=== PATIENT | female | born 1985 | race African-American/Black ===

== ENCOUNTER 2017-09-01 14:18 | Outpatient (CLI) | payer MEDICAID ==
[2017-09-02 04:06] LABS: APPEARANCE,URINE SLIGHTLY-CLOUDY; BILIRUBIN,URINE NEGATIVE (NEGATIVE); COLOR,URINE YELLOW; GLUCOSE, URINE 50 mg/dL (NEGATIVE); KETONES,URINE NEGATIVE (NEGATIVE); LEUKOCYTE ESTERASE,URINE SMALL (NEGATIVE); NITRITE,URINE NEGATIVE (NEGATIVE); PROTEIN,URINE NEGATIVE (NEGATIVE); URINE SPECIFIC GRAVITY 1.009; UROBILINOGEN,URINE NEGATIVE mg/dL (<2.0)
[2017-09-02 12:23] LABS: URINE BENZODIAZEPINES SCREEN NEGATIVE; URINE COCAINE SCREEN NEGATIVE; URINE PHENCYCLIDINE SCREEN NEGATIVE
[2017-09-02 12:24] LABS: URINE AMPHETAMINES SCREEN NEGATIVE; URINE BARBITURATES SCREEN NEGATIVE; URINE MARIJUANA (THC) SCREEN NEGATIVE; URINE METHADONE SCREEN NEGATIVE
== END 2017-09-01 16:13 | disposition home or self-care (01) ==
LOC: LC 14:18
PROVIDERS: ATTEND Obstetrics & Gynecology
PROC: 4A1HXCZ Monitoring of Products of Conception, Cardiac Rate, External Approach (ICD-10-PCS; principal; 2017-09-01)
DX: O47.1 False labor at or after 37 completed weeks of gestation (principal); Z3A.39 39 weeks gestation of pregnancy
CPT/HCPCS: 59025; 80307; 81005

== ENCOUNTER 2017-09-10 14:59 | Outpatient (CLI) | payer MEDICAID ==
[2017-09-10 15:39] LABS: APPEARANCE,URINE SLIGHTLY-CLOUDY; BILIRUBIN,URINE NEGATIVE (NEGATIVE); COLOR,URINE YELLOW; GLUCOSE, URINE NEGATIVE (NEGATIVE); KETONES,URINE NEGATIVE (NEGATIVE); LEUKOCYTE ESTERASE,URINE NEGATIVE (NEGATIVE); NITRITE,URINE NEGATIVE (NEGATIVE); PROTEIN,URINE 30 mg/dL (NEGATIVE); URINE SPECIFIC GRAVITY 1.021
[2017-09-10 15:53] LABS: URINE AMPHETAMINES SCREEN NEGATIVE; URINE BARBITURATES SCREEN NEGATIVE; URINE BENZODIAZEPINES SCREEN NEGATIVE; URINE COCAINE SCREEN NEGATIVE; URINE MARIJUANA (THC) SCREEN NEGATIVE; URINE METHADONE SCREEN NEGATIVE; URINE PHENCYCLIDINE SCREEN NEGATIVE
--- NOTE | 2017-09-10 16:03 | Non Stress Test Report ---
Non Stress Test Datetime Report Generated by CPN: 09/10/2017 16:03 DEMOGRAPHIC EGA NST: 40.6 INDICATION Indication for Study: Ordered by Provider Indication for Study (NST) Other: LC MONITORING Monitor Explained: Monitor Explained; Test Explained; Patient Verbalized Understanding Time on Monitor: 09/10/2017 15:16 Time off Monitor: 09/10/2017 15:55 NST Duration: 39 NST INTERVENTIONS NST Interventions: PO Hydration Physician Notified NST: C. Good, CNM BABY A: [id number] BABY A Movement : Present Contraction Frequency : 16 FHR Baseline : 135 Accelerations : 15X15 Decelerations : None Variability : Moderate 6-25bpm NST Review: Meets Criteria for Reactive NST NST Review and Verified By : Dar Bellavamendoza RNC NST Results: Reactive NST REPORT Report Trigger: Send Report
== END 2017-09-10 16:06 | disposition home or self-care (01) ==
LOC: LC 14:59
PROVIDERS: ATTEND Student in an Organized Health Care Education/Training Program
PROC: 4A1HXCZ Monitoring of Products of Conception, Cardiac Rate, External Approach (ICD-10-PCS; principal; 2017-09-10)
DX: O47.1 False labor at or after 37 completed weeks of gestation (principal); O48.0 Post-term pregnancy; Z3A.40 40 weeks gestation of pregnancy
CPT/HCPCS: 59025; 80307; 81001

== ENCOUNTER 2017-09-11 06:17 | Inpatient (IN) | payer MEDICAID ==
[2017-09-11] MEDS ORDERED: PENICILLIN G POTASSIUM 5,000,000 UNIT in DEXTROSE 5%-WATER 100 ML IV ONE (06:34)
[2017-09-11] MEDS ORDERED: RINGERS SOLUTION,LACTATED 1,000 ML IV PRN (06:34)
[2017-09-11] MEDS ORDERED: RINGERS SOLUTION,LACTATED 1,000 ML IV ONE (06:34)
[2017-09-11] MEDS ORDERED: PENICILLIN G-K 5 MILLION UNIT VIAL IV PRN (06:39)
[2017-09-11 07:06] LABS: ABSOLUTE EOSINOPHILS # (AUTO) 0.1 10^3/uL (0.0-0.6); ABSOLUTE LYMPHOCYTES (AUTO) 1.5 10^3/uL (0.5-4.7); ABSOLUTE MONOCYTES (AUTO) 0.6 10^3/uL (0.1-1.4); ABSOLUTE NEUT (AUTO) 4.3 10^3/uL (1.7-8.2); BASOPHILS % (AUTO) 0.5 % (0-2); EOSINOPHILS % (AUTO) 1.1 % (0-6); HEMATOCRIT 32.2 % (36.0-47.0); HEMOGLOBIN 10.9 g/dL (12.0-15.5); LYMPHOCYTES % (AUTO) 22.5 % (13-45); MEAN CORPUSCULAR HGB CONC 33.8 g/dL (32.0-36.0); MEAN CORPUSCULAR VOLUME 98 fl (80-97); MONOCYTES % (AUTO) 9.7 % (3-13); PLATELET COUNT 238 10^3/uL (150-450); RED BLOOD COUNT 3.29 10^6/uL (3.72-5.28); RED CELL DISTRIBUTION WIDTH 13.6 % (11.5-14.0); SEGMENTED NEUTROPHILS % (AUTO) 66.2 % (42-78); TOTAL CELLS COUNTED % (AUTO) 100 %; WHITE BLOOD COUNT 6.5 10^3/uL (4.0-10.5)
[2017-09-11] MEDS ORDERED: OXYTOCIN/NORMAL SALINE 20 UNIT/1,000 ML RTUINJ ONE (07:37)
[2017-09-11 07:47] LABS: APPEARANCE,URINE SLIGHTLY-CLOUDY; BILIRUBIN,URINE NEGATIVE (NEGATIVE); COLOR,URINE YELLOW; GLUCOSE, URINE NEGATIVE (NEGATIVE); KETONES,URINE NEGATIVE (NEGATIVE); LEUKOCYTE ESTERASE,URINE NEGATIVE (NEGATIVE); NITRITE,URINE NEGATIVE (NEGATIVE); PROTEIN,URINE NEGATIVE (NEGATIVE); URINE SPECIFIC GRAVITY 1.023
[2017-09-11] MEDS: OXYTOCIN/NORMAL SALINE 20 UNIT/1,000 ML RTUINJ IV PRN ×2 (07:47→13:54)
[2017-09-11] MEDS ORDERED: PENICILLIN G-K 5 MILLION UNIT VIAL ONE ×2 (07:53→11:31)
[2017-09-11 08:23] LABS: URINE AMPHETAMINES SCREEN NEGATIVE; URINE BARBITURATES SCREEN NEGATIVE; URINE BENZODIAZEPINES SCREEN NEGATIVE; URINE COCAINE SCREEN NEGATIVE; URINE MARIJUANA (THC) SCREEN NEGATIVE; URINE METHADONE SCREEN NEGATIVE; URINE PHENCYCLIDINE SCREEN NEGATIVE
--- NOTE | 2017-09-11 09:35 | L&D Progress Notes ---
PROGRESS NOTES Datetime Report Generated by CPN: 09/11/2017 09:35 PROGRESS NOTE Plan: Induction Informed Consent Obtained: Vaginal Delivery; Induction of Labor; Risks, Benefits and Alternatives Discussed Informed Consent Obtained: Vaginal Delivery; Induction of Labor; Risks, Benefits and Alternatives Discussed Comment: 32 yo EDC per u/s 09/04/17 EGA 41 weeks history of chlamydia with neg KENDRICK largest baby 8lbs 13oz. abdomen soft and nontender FHTs 120s average variability cat 1 uterine contractions 2-4 min GBS positive gbs prophylaxis plan to rupture after second dose pitocin @8 milliunits/ min anticipate poc reviewed with pt and sister VAGINAL EXAM Dilatation: 3 Effacement: 25 Station: -3 Contractions: q 2 -3 MEMBRANES Membranes: Intact Membranes: Intact FETUS A Monitoring: External US Variability: Moderate 6-25bpm Accelerations: 15X15 Decelerations: None FHR Category: Category I : 41.0 Presentation: Vertex SIGNATURE SIGNATURE: [id number] SIGNATURE: [id number] SIGNATURE: [id number] Assignment: Benji Medrano MD Signature: with User ID: [email or web address] : with User ID: [email or web address]
[2017-09-11] MEDS ORDERED: PENICILLIN G POTASSIUM 2,500,000 UNIT in DEXTROSE 5%-WATER 50 ML IV SCH (10:35)
[2017-09-11] MEDS ORDERED: MISOPROSTOL 0.2 MG TABLET ONE (11:31)
[2017-09-11] MEDS ORDERED: LIDOCAINE 1% INJ-PF (10 MG/ML) 30 ML SDV ONE (11:31)
[2017-09-11] MEDS: PENICILLIN G-K 5 MILLION UNIT VIAL IV SCH ×3 (11:40→21:42)
[2017-09-11] MEDS ORDERED: PSEUDOEPHEDRINE HCL 30 MG TABLET PO PRN (12:13)
[2017-09-11] MEDS ORDERED: DIPHENHYDRAMINE HCL 25 MG CAPSULE PO PRN (12:13)
[2017-09-11] MEDS ORDERED: BENZOCAINE/MENTHOL AEROSOL SPRAY 56 ML TOP PRN (12:13)
[2017-09-11] MEDS ORDERED: DIPH/PERTUSS(ACELL)/TETANUS VAC/PF 0.5 ML SYR (>=10YO) IM PRN (12:13)
[2017-09-11] MEDS ORDERED: PROMETHAZINE HCL 25 MG SUPP.RECT PR PRN (12:13)
[2017-09-11] MEDS ORDERED: PROMETHAZINE HCL 25 MG TABLET PO PRN (12:13)
[2017-09-11] MEDS ORDERED: PROMETHAZINE HCL INJ 25 MG/1 ML VIAL IV PRN (12:13)
[2017-09-11] MEDS ORDERED: ACETAMINOPHEN WITH CODEINE #3 TABLET PO PRN (12:13)
[2017-09-11] MEDS ORDERED: ACETAMINOPHEN 650 MG SUPP.RECT PR PRN (12:13)
[2017-09-11] MEDS ORDERED: NA PHOS,M-B/NA PHOS,DI-BA (ADULT) 133 ML ENEMA PR PRN (12:13)
[2017-09-11] MEDS ORDERED: OXYTOCIN/NORMAL SALINE 20 UNIT/1,000 ML RTUINJ IV PRN (12:13)
[2017-09-11] MEDS ORDERED: GLYCERIN/WITCH HAZEL LEAF 1 EACH MED..PAD TP PRN (12:13)
[2017-09-11] MEDS ORDERED: MEASLES,MUMPS&RUBELLA VACC/PF 0.5 ML VIAL SUBCUT PRN (12:13)
[2017-09-11] MEDS ORDERED: DIBUCAINE 1% OINTMENT 28 GM TP PRN (12:13)
[2017-09-11] MEDS ORDERED: MAGNESIUM HYDROXIDE SUSP 30 ML UDCUP PO PRN (12:13)
[2017-09-11] MEDS ORDERED: ZOLPIDEM TARTRATE 5 MG TABLET PO PRN (12:13)
[2017-09-11] MEDS ORDERED: ACETAMINOPHEN WITH CODEINE #3 TABLET ONE (12:14)
--- NOTE | 2017-09-11 14:18 | Admission Physical ---
Datetime Report Generated by CPN: 09/11/2017 14:18 CURRENT ADMISSION Chief Complaint: Scheduled Induction of Labor Indication for Induction: Post Dates Indication for Induction: Term, Intrauterine ; No Active Labor; Intact Membranes; Induction of Labor Admit Plan: Admit to Unit; Initiate Labor Induction Protocol ALLERGIES Medication Allergies: No Medication Allergies: No Known Allergies (09/11/2017) Medication Allergies: No Known Allergies (09/10/2017) Medication Allergies: No Known Allergies (05/15/2012) Latex: No Latex Allergies Food Allergies: none Environmental Allergies: none OBSTETRICAL HISTORY EDC: 09/04/2017 00:00 : 6 Para: 4 Term: 4 : 0 SAB: 1 IAB: 0 Ectopic: 0 Livin Cesareans: 0 VBACs: 0 Multiple Births: 0 Gestational Diabetes: No Rh Sensitization: No Incompetent Cervix: No AKIRA: No Infertility: No ART Treatment: No Uterine Anomaly: No IUGR: No Hx Previous C/S: No Macrosomia: No Hx Loss/Stillborn: No PIH: No Hx : No Placenta Previa/Abruption: No Depression/PP Depression: No PTL/PROM: No Post Hemorrhage: No Current Procedures: Ultrasound; NST Obstetrical History Comments: G1 SAB 2006 G2 2007 40 + weeks 7lb, 13oz boy G3 2009 40 6lb, 9oz, Girl G4 2011 41.2, 8lb, 13oz, boy G5 40.0, 8lb, 9oz, girl, G6 current SEE RECORDS Alcohol: No Marijuana : No Cocaine: No Other Illicit Drugs: No Cigarettes: Never Smoker. [id number] MEDICAL HISTORY Diabetes: No Blood Transfusion: No Pulmonary Disease (Asthma, TB): No Breast Disease: No Hypertension: No Mrb Engineer Surgery: No Heart Disease: No Hosp/Surgery: No Autoimmune Disorder: No Anesthetic Complications: No Kidney Disease: No Abnormal Pap Smear: No Neuro/Epilepsy: No Psychiatric Disorders: No Other Medical Diseases: No Hepatitis/Liver Disease: No Significant Family History: No Varicosities/Phlebitis: No Trauma/Violence : No Thyroid Dysfunction: No INFECTIOUS HISTORY Gonorrhea: No Genital Herpes: No Chlamydia: No Tuberculosis: No Syphilis: No Hepatitis: No HIV/AIDS Exposure: No Rash or Viral Illness: No HPV: No PHYSICAL EXAM General: Normal HEENT: Normal Neurologic: Normal Thyroid: Deferred Heart: Normal Lungs: Normal Breast: Deferred Back: Normal Abdomen: Normal Genitourinary Exam: Normal Extremities: Normal DTRs: Normal Pelvic Type: Adequate Vital Signs: Reviewed VAGINAL EXAM Dilatation: 3 Effacement: 25 Station: -3 Contraction Comments: q 2 -3 MEMBRANES Membranes: Intact Membranes: Intact FETUS A EGA: 41.0 Monitoring: External US FHR- Baseline: 135 Variability: Moderate 6-25bpm Accelerations: 15X15 Decelerations: None FHR Category: Category I Presentation: Vertex Admit Comment: 32yo at 41+0ega presents for scheduled IOL due to Post TIA. GBS pos - PCN for GBS prophy. Pelvis proven to 8#13oz. EFW 7-9#. Anticpate . REassuring FWB. Chlamydia in early - with good KENDRICK. No h/o GDM. begin IOL with pitocin. PLANS FOR LABOR AND DELIVERY Labor and Delivery: None Pain Management: Natural Feeding Preference: Breast Benefit of Breast Feed Discussed: Yes Circumcision: Yes INFORMED CONSENT Informed Consent Obtained: Vaginal Delivery; Induction of Labor; Risks, Benefits and Alternatives Discussed Informed Consent Obtained: Vaginal Delivery; Induction of Labor; Risks, Benefits and Alternatives Discussed Signature: with User ID: [email or web address]
[2017-09-11] MEDS: IBUPROFEN 800 MG TABLET PO SCH ×2 (14:43→21:41)
--- NOTE | 2017-09-11 15:51 | Delivery Summary ---
Del Sum A-C Datetime Report Generated by CPN: 09/11/2017 15:51 DELIVERY PERSONNEL DELIVERY PERSONNEL: [id number] Delivery Doctor:: Carin Chan CNM Nurse Superintendent Job Certified:: Carin Chan CNM Labor and Delivery Nurse:: Angle Carey RNtumbling and rolling supervisor Nurse:: BRITNI Flores Soa Integration Developer/DENTAL COORDINATOR: Graciela Irene, OTHER SPORTS OFFICIAL Soa Integration Developer/DENTAL COORDINATOR: Lenora Reese CNA II MATERNAL INFORMATION Delivery Anesthesia: None Medications After Delivery: Pitocin Bolus-Please Comment Meds After Delivery Comment: Pitocin 20 units in 1000 ml NSS opne for bolus Estimated Blood Loss (ml): 300 Maternal Complications: Precipitous Labor (<3hrs) Provider Comments: pt reports increased urge to push bed prepped for delivery AROM clear and pt completely dilated delivery of viable baby boy apgars 9/10 bulb suctioned on perineum infant to abdomen cord clamped cut by sister cord blood obtained 3VC placenta intact delivered in donato fashion ebl 300 cc trailing membranes no lacerations hemostasis achieved LABOR SUMMARY EDC: 09/04/2017 00:00 No. Babies in Womb: 1 Attempted: No Labor Anesthesia: None LABOR INFORMATION Reason for Induction: Post Dates Onset of Labor: 09/11/2017 11:00 Complete Dilatation: 09/11/2017 11:57 Oxytocin: Induction Group B Beta Strep: Positive Antibiotics # of Doses: 2 Antibiotics Time of Last Dose: 1140 Name of Antibiotic Given: Penicillin Steroids Given: None Reason Steroids Not Administered: Not Applicable MEMBRANES Membranes Rupture Method: Artificial Rupture of Membranes: 09/11/2017 11:57 Length of Rupture (hr): 0.05 Amniotic Fluid Color: Clear Amniotic Fluid Amount: Moderate Amniotic Fluid Odor: Normal STAGES OF LABOR Stage 1 hr: 0 Stage 1 min: 57 Stage 2 hr: 0 Stage 2 min: 3 Stage 3 hr: 0 Stage 3 min: 2 Total Time in Labor hr: 1 Total Time in Labor min: 2 VAGINAL DELIVERY Episiotomy: None Laceration #1: None Laceration Extension #1: N/A Laceration Repair: Not Applicable Sponge Count Correct: N/A CSECTION DELIVERY Primary Indication: N/A Secondary Indication: N/A CSection Incidence: N/A Labor: N/A Elective: N/A CSection Incision: N/A BABY A INFORMATION Delivery Date/Time: 09/11/2017 12:00 Method of Delivery: Vaginal Born in Route : No : N/A Forceps: N/A Vacuum Extraction: N/A Shoulder Dystocia : No PRESENTATION/POSITION BABY A Presentation: Cephalic Cephalic Presentation: Vertex Vertex Position: Left Occipital Anterior Breech Presentation: N/A PLACENTA INFORMATION BABY A Placenta Delivery Time : 09/11/2017 12:02 Placenta Method of Delivery: Spontaneous Placenta Status: Delivered SCORES BABY A Heart Rate 1 min: >100 bpm Resp Effort 1 min: Good Cry Reflex Irritability 1 min: Cough or Sneeze or Pulls Away Muscle Tone 1 min: Active Motion Color 1 min: Body [place], Extremities Blue Resuscitation Effort 1 min: Tactile Stimulation SCORE 1 MIN: 9 Heart Rate 5 min: >100 bpm Resp Effort 5 min: Good Cry Reflex Irritability 5 min: Cough or Sneeze or Pulls Away Muscle Tone 5 min: Active Motion Color 5 min: Completely [place] Resuscitation Effort 5 min: N/A SCORE 5 MIN: 10 Resuscitation Effort 10 min: N/A INFANT INFORMATION BABY A Gestational Age at Delivery: 41.0 Gestational Status: Late Term- 41- 41.6 Weeks Infant Outcome : Liveborn Condition : Stable Sex: Male IDENTIFICATION BABY A Infant Verification Date/Time: 09/11/2017 12:47 ID Band Number: [id number] Mother's Name Verified: Yes Infant RN Verifying Infant: [place] [employer] RNC Additional Verifying Personnel: [facility] RN WEIGHT/LENGTH BABY A Infant Birthweight (gm): 3495 Infant Weight (lb): 7 Weight (oz): 11 Length (in): 20.50 Length (cm): 52.07 CORD INFORMATION BABY A No. Cord Vessels: 3 Nuchal Cord : N/A Cord Blood Taken: Yes-For Storage (Mom's Blood type +) Infant Suction: None ASSESSMENT BABY A Complications: None Physical Findings at Delivery: Within Normal Limits Infant Respirations: Appears Normal Skin to Skin: Yes Skin to Skin Time (min): 45 Senior Major Gifts Officer/ALS Called : No Infant Care By: [place] Camp RNC Transferred To: Remains with Mother BABY B INFORMATION : N/A SIGNATURES Assignment: Benji Medrano MD Signature: with User ID: [email or web address] : with User ID: [email or web address]
[2017-09-11] MEDS: FERROUS SULFATE 325 MG TABLET PO SCH (17:13)
[2017-09-11] MEDS: DOCUSATE SODIUM 100 MG CAPSULE PO SCH (17:14)
[2017-09-11] MEDS: FAMOTIDINE 20 MG TABLET PO SCH (21:41)
[2017-09-12] MEDS: PENICILLIN G-K 5 MILLION UNIT VIAL IV SCH ×3 (00:43→06:30)
[2017-09-12] MEDS: IBUPROFEN 800 MG TABLET PO SCH ×3 (05:11→22:18)
[2017-09-12 07:41] LABS: HEMATOCRIT 32.3 % (36.0-47.0); HEMOGLOBIN 10.8 g/dL (12.0-15.5); MEAN CORPUSCULAR HGB CONC 33.5 g/dL (32.0-36.0); MEAN CORPUSCULAR VOLUME 99 fl (80-97); PLATELET COUNT 219 10^3/uL (150-450); RED BLOOD COUNT 3.28 10^6/uL (3.72-5.28); RED CELL DISTRIBUTION WIDTH 13.7 % (11.5-14.0); WHITE BLOOD COUNT 7.9 10^3/uL (4.0-10.5)
[2017-09-12] MEDS: FERROUS SULFATE 325 MG TABLET PO SCH ×2 (10:49→17:27)
[2017-09-12] MEDS: DOCUSATE SODIUM 100 MG CAPSULE PO SCH ×2 (10:49→17:27)
[2017-09-12] MEDS: SENNOSIDES/DOCUSATE 8.6-50 MG 1 EACH TABLET PO SCH (10:50)
[2017-09-12] MEDS: FAMOTIDINE 20 MG TABLET PO SCH ×2 (10:50→22:18)
[2017-09-12] MEDS: PRENATAL VITAMIN W DHA CAPSULE PO SCH (10:50)
--- NOTE | 2017-09-12 12:08 | PDOC PROGRESS REPORT ---
Subjective-OB Subjective: Post Delivery Day: 1 32 year old. Denies any needs at this time, states lochia is stable, pain is well controlled, voiding without difficulty. Physical Exam (OB) Vital Signs: Temp Pulse Resp BP Pulse Ox 98.6 F 69 16 112/53 L 100 09/12/17 07:57 09/12/17 07:57 09/12/17 07:57 09/12/17 07:57 09/12/17 07:57 Intake & Output 09/11/17 09/12/17 09/13/17 06:59 06:59 06:59 Weight 93.8 kg - Lochia Lochia Amount: Small 10-25 ml Lochia Color: Rubra/Red - Abdomen Description: Soft, Round Hernia Present: No Fundal Description: Firm, Midline Fundal Height: u/u - u/2 Objective-Diagnostic Laboratory: 09/12/17 07:01 09/12/17 07:01 WBC 7.9 RBC 3.28 L Hgb 10.8 L Hct 32.3 L MCV 99 H MCH 33.0 MCHC 33.5 RDW 13.7 Plt Count 219 Assessment and Plan(PN) - Assessment and Plan (1) Vaginal delivery Is this a current diagnosis for this admission?: Yes Plan: routine pp care d/c associate financial planner involved, aids social worker involved - Time Spent with Patient Time with patient: Less than 15 minutes Critical Time spent with patient: Less than 15 minutes Medications reviewed and adjusted accordingly: Yes - Disposition Anticipated Discharge: Home Within: within 24 hours
[2017-09-13] MEDS: IBUPROFEN 800 MG TABLET PO SCH ×2 (05:23→13:18)
[2017-09-13 09:03] VITALS: BP 119/65
[2017-09-13] MEDS: FAMOTIDINE 20 MG TABLET PO SCH (10:04)
[2017-09-13] MEDS: PRENATAL VITAMIN W DHA CAPSULE PO SCH (10:04)
[2017-09-13] MEDS: SENNOSIDES/DOCUSATE 8.6-50 MG 1 EACH TABLET PO SCH (10:04)
[2017-09-13] MEDS: DOCUSATE SODIUM 100 MG CAPSULE PO SCH (10:05)
[2017-09-13] MEDS: FERROUS SULFATE 325 MG TABLET PO SCH (10:05)
--- NOTE | 2017-09-13 12:43 | PDOC DISCHARGE SUMMARY ---
Discharge Summary (SDC) - Discharge Final Diagnosis: vaginal delivery Condition: Good Forms: Discharge POC-Post Prescriptions: Ibuprofen [Motrin 800 mg Tablet] 800 mg PO Q8 #60 tablet Referrals: AMELIA MONTEZ MD [Primary Care Provider] - (Make a 4 week post check [facility] [phone].) Discharge Diet: Regular Discharge Activity: Activity As Tolerated, Balance Activity w/Rest, Pelvic Rest Home Care Assistance: None Needed, Provided by Family Report the Following to Your Physician Immediately: Shortness of Breath, Vomiting, Increase in Pain, Fever over 101 Degrees, Unusual Bleeding, Redness, Increased Vaginal Bleed, Large Clots, IV Site Infection Signs, Urinary Infection Signs
--- NOTE | 2017-09-18 09:53 | Delivery Summary ---
Del Sum A-C Datetime Report Generated by CPN: 09/18/2017 09:53 DELIVERY PERSONNEL DELIVERY PERSONNEL: [id number] Delivery Doctor:: Carin Chan CNM Nurse Launch Steward Certified:: Carin Chan CNM Labor and Delivery Nurse:: Angle Carey RNseparator operator Nurse:: BRITNI Flores Forestry Adviser/RENT AND HOUSING INVESTIGATOR: Graciela Irene, WIRE CHARGER Forestry Adviser/RENT AND HOUSING INVESTIGATOR: Lenora Reese CNA II MATERNAL INFORMATION Delivery Anesthesia: None Medications After Delivery: Pitocin Bolus-Please Comment Meds After Delivery Comment: Pitocin 20 units in 1000 ml NSS opne for bolus Estimated Blood Loss (ml): 300 Maternal Complications: Precipitous Labor (<3hrs) Provider Comments: pt reports increased urge to push bed prepped for delivery AROM clear and pt completely dilated delivery of viable baby boy apgars 9/10 bulb suctioned on perineum infant to abdomen cord clamped cut by sister cord blood obtained 3VC placenta intact delivered in donato fashion ebl 300 cc trailing membranes no lacerations hemostasis achieved LABOR SUMMARY EDC: 09/04/2017 00:00 No. Babies in Womb: 1 Attempted: No Labor Anesthesia: None LABOR INFORMATION Reason for Induction: Post Dates Onset of Labor: 09/11/2017 11:00 Complete Dilatation: 09/11/2017 11:57 Oxytocin: Induction Group B Beta Strep: Positive Antibiotics # of Doses: 2 Antibiotics Time of Last Dose: 1140 Name of Antibiotic Given: Penicillin Steroids Given: None Reason Steroids Not Administered: Not Applicable MEMBRANES Membranes Rupture Method: Artificial Rupture of Membranes: 09/11/2017 11:57 Length of Rupture (hr): 0.05 Amniotic Fluid Color: Clear Amniotic Fluid Amount: Moderate Amniotic Fluid Odor: Normal STAGES OF LABOR Stage 1 hr: 0 Stage 1 min: 57 Stage 2 hr: 0 Stage 2 min: 3 Stage 3 hr: 0 Stage 3 min: 2 Total Time in Labor hr: 1 Total Time in Labor min: 2 VAGINAL DELIVERY Episiotomy: None Laceration #1: None Laceration Extension #1: N/A Laceration Repair: Not Applicable Sponge Count Correct: N/A CSECTION DELIVERY Primary Indication: N/A Secondary Indication: N/A CSection Incidence: N/A Labor: N/A Elective: N/A CSection Incision: N/A BABY A INFORMATION Delivery Date/Time: 09/11/2017 12:00 Method of Delivery: Vaginal Born in Route : No : N/A Forceps: N/A Vacuum Extraction: N/A Shoulder Dystocia : No PRESENTATION/POSITION BABY A Presentation: Cephalic Cephalic Presentation: Vertex Vertex Position: Left Occipital Anterior Breech Presentation: N/A PLACENTA INFORMATION BABY A Placenta Delivery Time : 09/11/2017 12:02 Placenta Method of Delivery: Spontaneous Placenta Status: Delivered SCORES BABY A Heart Rate 1 min: >100 bpm Resp Effort 1 min: Good Cry Reflex Irritability 1 min: Cough or Sneeze or Pulls Away Muscle Tone 1 min: Active Motion Color 1 min: Body [place], Extremities Blue Resuscitation Effort 1 min: Tactile Stimulation SCORE 1 MIN: 9 Heart Rate 5 min: >100 bpm Resp Effort 5 min: Good Cry Reflex Irritability 5 min: Cough or Sneeze or Pulls Away Muscle Tone 5 min: Active Motion Color 5 min: Completely [place] Resuscitation Effort 5 min: N/A SCORE 5 MIN: 10 Resuscitation Effort 10 min: N/A INFANT INFORMATION BABY A Gestational Age at Delivery: 41.0 Gestational Status: Late Term- 41- 41.6 Weeks Infant Outcome : Liveborn Condition : Stable Sex: Male IDENTIFICATION BABY A Infant Verification Date/Time: 09/11/2017 12:47 ID Band Number: [id number] Mother's Name Verified: Yes Infant RN Verifying Infant: [place] [employer] RNC Additional Verifying Personnel: [facility] RN WEIGHT/LENGTH BABY A Infant Birthweight (gm): 3495 Infant Weight (lb): 7 Weight (oz): 11 Length (in): 20.50 Length (cm): 52.07 CORD INFORMATION BABY A No. Cord Vessels: 3 Nuchal Cord : N/A Cord Blood Taken: Yes-For Storage (Mom's Blood type +) Infant Suction: None ASSESSMENT BABY A Complications: None Physical Findings at Delivery: Within Normal Limits Infant Respirations: Appears Normal Skin to Skin: Yes Skin to Skin Time (min): 45 Photogrammetric Compilation Specialist/ALS Called : No Infant Care By: [place] RNC Transferred To: Remains with Mother BABY B INFORMATION : N/A SIGNATURES Assignment: Benji Medrano MD Signature: with User ID: [email or web address] : with User ID: [email or web address]
== END 2017-09-13 14:40 | disposition home or self-care (01) | DRG 775 ==
LOC: LR 06:17 → 2S 14:17
PROVIDERS: ADMIT Obstetrics & Gynecology Gynecology; ATTEND Obstetrics & Gynecology Gynecology
PROC: 10E0XZZ Delivery of Products of Conception, External Approach (ICD-10-PCS; principal; 2017-09-11)
DX: O48.0 Post-term pregnancy (principal); O99.824 Streptococcus B carrier state complicating childbirth; O62.3 Precipitate labor; Z37.0 Single live birth; Z3A.41 41 weeks gestation of pregnancy
CPT/HCPCS: 36415; 80307; 81005; 85025; 85027; 86592; 86850; 86900; 86901; J2540; J2590; J3490